=== PATIENT | male | born 1965 | race Caucasian/White ===

== ENCOUNTER → 2016-09-04 | Outpatient (CLI) | payer BC ==
[~2016-09-04] VITALS: Ht 177.8 cm; Wt 95.7 kg
[~2016-09-04] MED LIST: CLR10 PO; MULT-506 PO; OMEG10007 PO; TRAM-10 PO
[2016-09-04 14:59] VITALS: BP 126/83; PULSE 88; Ht 177.8 cm; Wt 95.7 kg
== END | disposition home or self-care (01) ==
LOC: C.NEUR 14:07
PROVIDERS: ATTEND Internal Medicine Pulmonary Disease
DX: G47.30 Sleep apnea, unspecified (principal)

== ENCOUNTER → 2016-11-25 | Outpatient (CLI) | payer BC ==
[~2016-11-25] VITALS: Ht 177.8 cm; Wt 98.5 kg
[2016-11-25 15:26] VITALS: BP 146/86; PULSE 101; Ht 177.8 cm; Wt 98.5 kg
== END | disposition home or self-care (01) ==
LOC: C.NEUR 14:58
PROVIDERS: ATTEND Physician Assistant Medical
DX: G47.30 Sleep apnea, unspecified (principal)

== ENCOUNTER → 2017-02-24 | Outpatient (CLI) | payer BC ==
[~2017-02-24] VITALS: Ht 177.8 cm; Wt 98.0 kg
[2017-02-24 16:32] VITALS: BP 130/90; PULSE 92; Ht 177.8 cm; Wt 98.0 kg
== END | disposition home or self-care (01) ==
LOC: C.NEUR 15:29
PROVIDERS: ATTEND Physician Assistant Medical
DX: G47.30 Sleep apnea, unspecified (principal)

== ENCOUNTER → 2017-08-14 | Outpatient (CLI) | payer BC ==
[~2017-08-14] VITALS: Ht 177.8 cm; Wt 95.6 kg
[2017-08-14 16:08] VITALS: BP 135/88; PULSE 102; Ht 177.8 cm; Wt 95.6 kg
== END | disposition home or self-care (01) ==
LOC: C.NEUR 15:19
PROVIDERS: ATTEND Internal Medicine Pulmonary Disease
DX: G47.30 Sleep apnea, unspecified (principal)